=== PATIENT | female | born 1935 | race Caucasian/White ===

== ENCOUNTER 2025-01-21 11:55 | Emergency (ER) | payer MEDICARE, OTHER ==
[~2025-01-21] VITALS: Ht 167.6 cm; Wt 59.0 kg
[2025-01-21 11:58] VITALS: O2SAT 96
[2025-01-21] MEDS: SODIUM CHLORIDE 0.9% 1,000 ML IV ONE (12:23)
[2025-01-21 12:32] VITALS: BP 173/83; PULSE 94; RESP 13; TEMP 36.6; O2SAT 99
[2025-01-21 12:40] LABS: BASOPHILS % 0.2 % (0.0-2.0); DIFFERENTIAL COMMENT 0; EOSINOPHILS % 4.4 % (0.0-5.0); HEMATOCRIT. 37.3 % (36.0-48.0); HEMOGLOBIN. 11.9 g/dL (12.0-16.0); LYMPHOCYTES % 20.8 % (20.0-50.0); MEAN CORPUSCULAR HEMOGLOBIN 24.4 pg (28.0-32.0); MEAN CORPUSCULAR VOLUME 76.3 fL (81.0-99.0); MEAN PLATELET VOLUME 7.5 fl (7.4-10.4); MONOCYTES % 5.1 % (2.0-8.0); NEUTROPHILS % 69.5 % (40.0-76.0); PLATELET 300 x1000/uL (130-400); RED BLOOD CELL COUNT 4.89 mill/uL (4.2-5.4); RED CELL DISTRIBUTION WIDTH 19.6 % (11.6-14.6); WHITE BLOOD COUNT 7.5 x1000/uL (4.5-11.0)
[2025-01-21 12:43] LABS: CHLORIDE 104 mEq/L (98-107); POTASSIUM 4.3 mEq/L (3.5-5.1); SODIUM 139 mEq/L (136-145)
[2025-01-21 12:44] LABS: CARBON DIOXIDE 29 mEq/L (21-32)
[2025-01-21 12:45] LABS: CALCIUM 9.2 mg/dL (8.7-10.4)
[2025-01-21 12:49] LABS: CREATININE 0.9 mg/dL (0.6-1.0)
[2025-01-21 12:50] LABS: GLUCOSE 147 mg/dL (70-105); UREA NITROGEN BLOOD 29 mg/dL (9-23)
[2025-01-21 12:53] LABS: TROPONIN I HIGH SENSITIVITY 11 ng/L (3.0-34)
== END 2025-01-21 13:36 | disposition left against medical advice (07) ==
LOC: ER 11:55
DX: R41.82 Altered mental status, unspecified (principal); F03.90 Unspecified dementia, unspecified severity, without behavioral disturbance, psychotic disturbance, mood disturbance, and anxiety; I49.9 Cardiac arrhythmia, unspecified; Z88.0 Allergy status to penicillin; Z86.39 Personal history of other endocrine, nutritional and metabolic disease; Z86.59 Personal history of other mental and behavioral disorders; Z87.440 Personal history of urinary (tract) infections
CPT/HCPCS: 99285; 96360; 71045; 80048; 85025; 84484; 36415; 93005; J7030; A4606